=== PATIENT | male | born 2000 | race Caucasian/White ===

== ENCOUNTER 2019-07-31 13:58 | Emergency (ER) | payer SELFPAY ==
[2019-07-31 14:16] VITALS: BP 150/73; PULSE 85; RESP 20; TEMP 36.4; O2SAT 98
--- NOTE | 2019-07-31 14:45 | ED.URI ---
HPI - URI/Sore Throat General Chief Complaint: Upper Respiratory Infection Stated Complaint: Ear/Nose/Throat Time Seen by Provider: 07/31/19 14:46 Source: patient and RN notes reviewed Mode of arrival: ambulatory Limitations: no limitations History of Present Illness HPI Narrative: 19 year old male who presents to [facility] care with complaints of feeling ill since Sunday evening with cold symptoms of cough, headache, sore throat, stomach ache and body aches, chills. with cough and sore throat remaining then last night night right ear pain started. Patient states that he has had some headache and one incidence of nausea and vomiting on Sunday. Patient state that he has had clear nasal drainage and sinus pressure. MD elicited complaint: fever, cough, sore throat, rhinorrhea, nasal congestion, sinus pain and other (ear pain) Onset (ago): day(s) (3-4 days) Consistency: constant Severity: moderate Pain scale (0-10): 6 Description of mucous: yellow Able to tolerate fluids by mouth: Yes Exacerbating factors: swallowing Relieving factors: nothing Associated symptoms: fever, chills, headache, rhinorrhea, nasal congestion, sore throat, cough and other (right ear pain) Related Data Allergies Allergy/AdvReac Type Severity Reaction Status Date / Time Penicillins Allergy Rash Verified 07/31/19 14:32 Review of Systems Review of Systems: Narrative: CONSTITUTIONAL: Has felt feverish, chills, or sweats. EYES: Denies visual changes, redness, or discharge. ENT: Positive rhinorrhea, congestion, sore throat right otalgia. CARDIOVASCULAR: Denies chest pain, palpitations, or edema. RESPIRATORY: Positive cough dyspnea. GASTROINTESTINAL: Denies abdominal pain, nausea, vomiting, or diarrhea. GENITOURINARY: Denies dysuria or hematuria. SKIN: Denies rash or itching. MUSCULOSKELETAL: Denies back pain, joint pain, or myalgia. NEUROLOGIC:positive headache,no numbness, or weakness. PSYCHIATRIC: Denies anxiety or depression. All systems reviewed & are unremarkable except as noted in HPI and below PMFSH Past Medical History Medical History (Updated 07/31/19 @ 17:22 by Malissa Martell NP) ADD (attention deficit disorder) Mononucleosis Rivera-Bautista syndrome Surgical History Surgical History (Updated 07/31/19 @ 17:22 by Malissa Martell NP) History of appendectomy History of tonsillectomy and adenoidectomy Social History Social History (Updated 07/31/19 @ 17:22 by Malissa Martell NP) Living arrangements: with family Gender identity (if verbalized by the patient): Male Comments At time of signature, agree with nursing past medical, social history. There is no relevant family history pertinent to the presenting complaint Exam Narrative: Exam Narrative: GENERAL: Well-appearing, well-nourished, and in no acute distress. HEAD: Normocephalic, atraumatic. EYES: PERRLA and EOMI. ENT: Nares red with clear to light yellow rhinorrhea no epistaxis. Mucous membranes moist. Right TM red dull light reflex left TM normal with adequate light reflex throat red, no exudate or lesions tonsil swelling NECK: Supple. No lymphadenopathy CHEST: Clear to auscultation. No respiratory distress. SaO2 98% on room air HEART: Regular rate and rhythm. No murmur heard. Normal peripheral pulses. ABDOMEN: Soft, nontender, nondistended, normal active bowel sounds. EXTREMITIES: Normal range of motion. No edema. SKIN: Warm, dry, no rash. NEURO: No focal deficits. Alert and oriented x3. Course Vital Signs Vital signs: Vital Signs Temperature 36.4 C 07/31/19 14:16 Pulse Rate 85 07/31/19 14:16 Respiratory Rate 07/31/19 14:16 Blood Pressure 150/73 H 07/31/19 14:16 Pulse Oximetry 98 07/31/19 14:16 Temperature 36.4 C 07/31/19 14:16 Pulse Rate 85 07/31/19 14:16 Respiratory Rate 07/31/19 14:16 Blood Pressure 150/73 H 07/31/19 14:16 Pulse Oximetry 98 07/31/19 14:16 MDM - URI/Sore Throat Differential Diagnosis Differential
== END 2019-07-31 15:15 | disposition home or self-care (01) ==
PROVIDERS: Emergency Provider Registered Nurse
DX: H65.01 Acute serous otitis media, right ear (principal); J06.9 Acute upper respiratory infection, unspecified; J02.9 Acute pharyngitis, unspecified; F90.0 Attention-deficit hyperactivity disorder, predominantly inattentive type; L51.1 Stevens-Johnson syndrome
CPT/HCPCS: 87081; 87880; 99213; G0463

== ENCOUNTER 2020-06-26 14:00 | Emergency (ER) | payer OTHER, SELFPAY ==
[2020-06-26 14:10] VITALS: BP 110/68; PULSE 84; RESP 18; TEMP 36.7; O2SAT 97
--- NOTE | 2020-06-26 14:37 | ED.BACK ---
HPI - Back Pain/Injury General Chief Complaint: Back Pain/Injury Stated Complaint: back pain Source: patient and RN notes reviewed Limitations: no limitations History of Present Illness HPI Narrative: The tall patient, previously mostly healthy, presents with right low back pain. 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 He complains of mild pain that is worse with motion including flexion, better with rest, similar to prior self resolving aches. No direct injury, radiating pain, hematuria, frequency/dysuria, numbness/weakness, gait changes Related Data Allergies Allergy/AdvReac Type Severity Reaction Status Date / Time Penicillins Allergy Rash Verified 06/26/20 14:20 Review of Systems Review of Systems: Narrative: General/Constitutional: No weight loss,fever Eyes: N0: Redness,discharge Ears/Nose/Throat: No: Epistaxis,ear discharge Respiratory: Denies: Hemoptysis Gastrointestinal: No Vomiting, Bleeding-rectal Skin: No Lumps, eruption Neurologic: No Focal Weakness,Sz Hematologic: Denies: Petechiae/Purpura Psychiatric: No: Suicida ideationl All Other Systems: Reviewed and Negative [facility] Past Medical History Medical History (Updated 06/26/20 @ 14:40 by Alvaro Salazar MD) ADD (attention deficit disorder) Mononucleosis Rivera-Bautista syndrome Surgical History Surgical History (Updated 07/31/19 @ 17:22 by Malissa Martell NP) History of appendectomy History of tonsillectomy and adenoidectomy Social History Social History (Updated 07/31/19 @ 17:22 by Malissa Martell NP) Gender identity (if verbalized by the patient): Male Comments At time of signature, agree with nursing past medical, surgical, social and family history. There is no relevant family history pertinent to the presenting complaint Exam Narrative: Exam Narrative: General Appearance: Well appearing, Conjunctiva clear Mouth/Throat: Normal appearing, Normal lips, Supple Respiratory: Airway patent Abdomen: Soft Musculoskeletal: Normal strength (no footdrop, 5/5 : EH L-FHL, gastroc-AT, no saddle weakness) Spine/Back: Paraspinal muscle tender (with mild decreased range of motion; right posterior superior iliac crest) Skin: Normal color Neurological: A&O x3, CN II-XII intact, Normal reflexes (symmetric, 2+ KJ, trace AJ) Psychiatric: Normal mood Course Vital Signs Vital signs: Vital Signs Temperature 98.0 F 06/26/20 14:10 Pulse Rate 84 06/26/20 14:10 Respiratory Rate 18 06/26/20 14:10 Blood Pressure 110/68 06/26/20 14:10 Pulse Oximetry 97 06/26/20 14:10 Temperature 98.0 F 06/26/20 14:10 Pulse Rate 84 06/26/20 14:10 Respiratory Rate 18 06/26/20 14:10 Blood Pressure 110/68 06/26/20 14:10 Pulse Oximetry 97 06/26/20 14:10 Discharge Plan Discharge Clinical Impression: Strain of lumbar region Qualifiers: Encounter type: initial encounter Qualified Code(s): S39.012A - Strain of muscle, fascia and tendon of lower back, initial encounter Patient Disposition: Home, Self-Care Condition: Stable Instructions: Low Back Strain (ED), Lower Back Exercises (ED) Prescriptions: New prednisone 20 mg tablet 60 mg PO DAILY Qty: 9 RF: 0 acetaminophen-codeine 300-30 mg tablet 1 tablet PO HS PRN (Reason: pain) Qty: 10 RF: 0 tramadol 50 mg tablet 50 mg PO Q6H PRN (Reason: pain) Qty: 15 RF: 1 Follow-up/Referrals: PHYSICIAN,[employer] [Primary Care Provider] -
== END 2020-06-26 14:45 | disposition home or self-care (01) ==
PROVIDERS: Emergency Provider Emergency Medicine
DX: S39.012A Strain of muscle, fascia and tendon of lower back, initial encounter (principal); X50.3XXA Overexertion from repetitive movements, initial encounter; Y99.0 Civilian activity done for income or pay; L51.1 Stevens-Johnson syndrome
CPT/HCPCS: 99213; G0463

== ENCOUNTER 2021-11-02 14:24 | Emergency (ER) | payer SELFPAY ==
[2021-11-02 14:30] VITALS: BP 141/89; PULSE 82; RESP 16; TEMP 36.7; O2SAT 99
--- NOTE | 2021-11-02 14:37 | ED.WOUNDLAC ---
HPI - Wound/Laceration General Chief Complaint: Wound/Laceration Stated Complaint: right finger injury Source: patient and RN notes reviewed Mode of arrival: ambulatory Limitations: no limitations History of Present Illness HPI narrative: patient was holding a hammer drill working on a project at work. Hammer drill slipped and went into his right distal index finger on the palmar aspect. Onset (ago): minute(s) (10) Extremity Location: Right: hand ( Index finger) Place: work Patient tetanus UTD: Yes Context: accidental Associated symptoms: pain Treatments prior to arrival: bandage Related Data Home Medications Medication Instructions Recorded Confirmed venlafaxine 150 mg 1 cap PO DAILY 11/02/21 11/02/21 capsule,extended release 24 hr Allergies Allergy/AdvReac Type Severity Reaction Status Date / Time Penicillins Allergy Rash Verified 11/02/21 14:35 Review of Systems Review of Systems: All systems reviewed & are unremarkable except as noted in HPI and below PMFSH Past Medical History Medical History ADD (attention deficit disorder) Mononucleosis Rivera-Bautista syndrome Surgical History Surgical History History of appendectomy History of tonsillectomy and adenoidectomy Social History Social History Gender identity (if verbalized by the patient): Male Exam Const: General: healthy appearing, no acute distress and alert Nutritional Appearance: well nourished Orientation/consciousness: patient oriented x3 Limitations: no limitations HENMT: Head: normal to inspection Ears: external ears normal Face and sinus: normal facial exam Eyes: Conjunctivae: conjunctivae normal Pupils: Equal, round and reactive pupils present EOM: EOMs intact bilaterally Neck: Neck: normal visual inspection Resp: Effort & Inspection: normal respiratory effort Auscultation: clear to auscultation bilaterally Cardio: Rate: regular rate Rhythm: regular rhythm GI: GI Palp: Yes Soft to palpation and No Tenderness to palpation present (GI) Auscultation: normal bowel sounds Back/Spine/Pelvis: Cervical Spine: cervical ROM normal Thoracic/Lumbar Spine: thoraco-lumbar ROM normal Skin: General skin exam: normal color Rashes: no rashes Wounds: wounds noted laceration right volar 2nd finger size (1 cm) Neuro: General: patient oriented x3, moves all extremities, no focal motor deficits and CN's II-XI intact bilaterally Speech: normal speech Gait exam (Neuro): Normal gait present Extrem: General: normal to inspection and no clubbing, cyanosis or edema Psych: Mental Status: mental status grossly normal Affect: normal affect Attitude: cooperative Course Vital Signs Vital signs: Vital Signs Temperature 36.7 C 11/02/21 14:30 Pulse Rate 82 11/02/21 14:30 Respiratory Rate 16 11/02/21 14:30 Blood Pressure 141/89 H 11/02/21 14:30 Pulse Oximetry 99 11/02/21 14:30 Oxygen Delivery Room Air 11/02/21 14:30 Temperature 36.7 C 11/02/21 14:30 Pulse Rate 82 11/02/21 14:30 Respiratory Rate 16 11/02/21 14:30 Blood Pressure 141/89 H 11/02/21 14:30 Pulse Oximetry 99 11/02/21 14:30 Oxygen Delivery Room Air 11/02/21 14:30 Procedures Laceration Laceration 1: Date: 11/02/21 Site: upper extremity Side (If applicable): right (index finger) Description: stellate Depth: simple, single layer Local Anesthetic: lidocaine 1% ( Digital nerve block) Amount of anesthesia used (mL): 5 Pre-repair: wound explored and irrigated ====== Skin Level ====== Skin layer closed with: nylon Size (cm): 4-0 Number of sutures: 4 Technique: running ====== Subcutaneous Layer ====== ====== Muscle Layer ====== ====== Tendon Layer ====== Dressing:
[2021-11-02] MEDS: LIDOCAINE HCL 1% LOCAL INJ 10 ML VIAL 20 ML INFILTRATE (15:16)
[2021-11-02] MEDS: NEOMYCIN/POLYMYXIN/BACITRACIN OINTMENT PACKET 1 PACKET TOPICAL (15:17)
[2021-11-02 15:29] VITALS: BP 138/70; PULSE 78; RESP 16; O2SAT 98
--- NOTE | 2021-11-02 16:03 | PC.NURSE ---
1525 wound repaired with sutures per erp. dressing applied.
== END 2021-11-02 15:29 | disposition home or self-care (01) ==
PROVIDERS: Emergency Provider Emergency Medicine
DX: S61.210A Laceration without foreign body of right index finger without damage to nail, initial encounter (principal); W27.8XXA Contact with other nonpowered hand tool, initial encounter
CPT/HCPCS: 12001; 99282

== ENCOUNTER 2022-04-18 14:41 | Emergency (ER) | payer BC, SELFPAY ==
--- NOTE | 2022-04-18 14:43 | ED.BACK ---
HPI - Back Pain/Injury General Chief Complaint: Back Pain/Injury Stated Complaint: lower back pain Time Seen by Provider: 04/18/22 14:44 Source: patient and RN notes reviewed History of Present Illness HPI Narrative: patient is a 21-year-old male who presents to urgent care with complaints of right-sided low back pain started approximately 1 month ago. Patient states that since then he has been trying to treat his pain with Tylenol and ibuprofen. States the pain worsened today after he attempted to lift a hot tub at work. Patient denies any radiation of the pain. No other acute complaints. No acute distress noted. Patient aware of the plan of care. Some parts of this dictation were generated by voice recognition software and may contain typographical and/or grammatical inaccuracies. Related Data Allergies Allergy/AdvReac Type Severity Reaction Status Date / Time Penicillins Allergy Rash Verified 11/02/21 14:35 Review of Systems Review of Systems: CONSTITUTIONAL: Denies fever, chills, or sweats. EYES: Denies visual changes, redness, or discharge. ENT: Denies rhinorrhea, congestion, sore throat, or otalgia. CARDIOVASCULAR: Denies chest pain, palpitations, or edema. RESPIRATORY: Denies cough or dyspnea. GASTROINTESTINAL: Denies abdominal pain, nausea, vomiting, or diarrhea. GENITOURINARY: Denies dysuria or hematuria. SKIN: Denies rash or itching. MUSCULOSKELETAL: Reports of low back pain to the right NEUROLOGIC: Denies headache, numbness, or weakness. All other systems reviewed are negative, except as documented in HPI. PMFSH Past Medical History Medical History ADD (attention deficit disorder) Mononucleosis Rivera-Bautista syndrome Surgical History Surgical History History of appendectomy History of tonsillectomy and adenoidectomy Social History Social History Gender identity (if verbalized by the patient): Male Comments At the time of my signature, I reviewed and agree with the nursing past medical, surgical, social, and family history. There is no relevant family history pertinent to the patient complaint. Exam Narrative: GENERAL: This is a well-nourished, well-developed patient, in no apparent distress. HEAD: normocephalic, atraumatic. EYES: PERRL. Sclera clear/white. Vision is grossly intact. EARS: External ears normal NOSE: External nose normal with no obvious nasal discharge, nares without redness, no rhinorrhea. THROAT: Mucous membranes moist NECK: Neck supple. SKIN: warm, intact with no suspicious lesions or rash, good texture and turgor. NEURO: awake, alert, and oriented to person, place and time. There were no obvious focal neurologic abnormalities. EXTREMITIES: No clubbing, cyanosis, or edema. BACK: [id number] right lumbar tenderness with positive right SLE Course Course Level of Care: Express Care Visit Vital Signs Vital signs: Vital Signs Temperature 98 F 04/18/22 14:50 Pulse Rate 98 04/18/22 14:50 Respiratory Rate 16 04/18/22 14:50 Blood Pressure 183/82 H 04/18/22 14:50 Pulse Oximetry 100 04/18/22 14:50 Oxygen Delivery Room Air 04/18/22 14:50 Temperature 98 F 04/18/22 14:50 Pulse Rate 98 04/18/22 14:50 Respiratory Rate 16 04/18/22 14:50 Blood Pressure 183/82 H 04/18/22 14:50 Pulse Oximetry 100 04/18/22 14:50 Oxygen Delivery Room Air 04/18/22 14:50 reviewed- Patient is informed that they may have pre-hypertension or hypertension based on a blood pressure reading in the department. I recommend the patient call the primary care provider listed on their discharge instructions or a physician of their choice this week to arrange follow-up for further evaluation of possible pre-hypertension or hypertension. MDM - Back Pain/Injury MDM Narrative Medical decision making narrativ
[2022-04-18 14:50] VITALS: BP 183/82; PULSE 98; RESP 16; TEMP 36.6; O2SAT 100
== END 2022-04-18 15:07 | disposition home or self-care (01) ==
PROVIDERS: Emergency Provider Nurse Practitioner Family; PCP Nurse Practitioner Family
DX: S33.5XXA Sprain of ligaments of lumbar spine, initial encounter (principal); X50.0XXA Overexertion from strenuous movement or load, initial encounter; Y99.0 Civilian activity done for income or pay
CPT/HCPCS: 99213; G0463

== ENCOUNTER 2022-04-25 16:27 | Emergency (ER) | payer BC, SELFPAY ==
[2022-04-25 17:09] VITALS: BP 154/95; PULSE 80; RESP 16; TEMP 37.2; O2SAT 99
--- NOTE | 2022-04-25 18:21 | ED.BACK ---
HPI - Back Pain/Injury General Chief Complaint: Back Pain/Injury Stated Complaint: Back Pain Time Seen by Provider: 04/25/22 18:15 Source: patient and RN notes reviewed Mode of arrival: ambulatory Limitations: no limitations History of Present Illness HPI Narrative: 21-year-old male presents with concern for continued back pain. Reports he was seen 1 week ago and prescribed steroids, ibuprofen and Flexeril for back pain. He does not have any back injury or trauma. Reports he is unable to take the Flexeril at work and a feels like it is not working very well. He reports he has been using ice. Reports he has some days left of his prednisone. He denies loss of bowel or bladder function, perianal anesthesia, weakness in the extremity MD elicited complaint: back pain Related Data Allergies Allergy/AdvReac Type Severity Reaction Status Date / Time Penicillins Allergy Rash Verified 11/02/21 14:35 Review of Systems Review of Systems: CONSTITUTIONAL: Denies malaise, chills, sweats, or fever. CARDIOVASCULAR: Denies chest pain, palpitations, or edema. RESPIRATORY: Denies cough or dyspnea. GASTROINTESTINAL: Denies abdominal pain, nausea, vomiting, diarrhea, loss of bowel function GENITOURINARY: Denies dysuria, hematuria, frequency, loss of bladder function. SKIN: Denies rash or itching. MUSCULOSKELETAL: Reports right low back pain NEUROLOGIC: Denies numbness, weakness, or headache. All systems reviewed & are unremarkable except as noted in HPI and below PMFSH Past Medical History Medical History ADD (attention deficit disorder) Mononucleosis Rivera-Bautista syndrome Surgical History Surgical History History of appendectomy History of tonsillectomy and adenoidectomy Social History Social History Gender identity (if verbalized by the patient): Male Comments At time of signature, agree with nursing past medical, surgical, social and family history. There is no relevant family history pertinent to the presenting complaint Exam Narrative: GENERAL: Well-appearing, well-nourished, and in no acute distress. HEAD: Normocephalic, atraumatic. EYES: PERRLA and EOMI. NECK: Supple. No lymphadenopathy. CHEST: Clear to auscultation. No respiratory distress. HEART: Regular rate and rhythm. Distal pulses palpable and equal, cap refill <3 seconds ABDOMEN: Soft, nontender, nondistended, normal active bowel sounds, no palpable or pulsatile masses. No CVA tenderness MUSCULOSKELETAL: Normal range of motion and strength in all extremities; 5/5 strength with hip flexion and extension, dorsiflexion and extension, knee flexion and extension, plantar flexion and extension. Normal sensation in dermatomal distributions with sensitivity to light touch and pain. No midline back tenderness to palpation. No paraspinal tenderness. Transfers from lying to sitting to standing. SKIN: Warm, dry, no rash. No ecchymosis, erythema, open wounds to back. NEURO: No focal deficits. Alert and oriented x3. Reflexes intact. Normal gait. PSYCH: Normal mood and affect Course Course Emergency Course: Patient is aware of diagnosis, understands and agrees to treatment plan. Anticipatory guidance given. Patient agrees to follow-up as directed and is aware of reasons to seek care at the emergency department. Portions of this record may have been created with voice recognition software Level of Care: Express Care Visit Vital Signs Vital signs: Vital Signs Temperature 99 F 04/25/22 17:09 Pulse Rate 80 04/25/22 17:09 Respiratory Rate 16 04/25/22 17:09 Blood Pressure 154/95 H 04/25/22 17:09 Pulse Oximetry 99 04/25/22 17:09 Oxygen Delivery Room Air 04/25/22 17:09 Temperature 99 F 04/25/22 17:09 Pulse Rate 80 04/25/22 17:09 Respiratory Rate 16 04/25/22 17:09 Blood Pressure 154/95 H 1
== END 2022-04-25 18:32 | disposition home or self-care (01) ==
PROVIDERS: Emergency Provider Nurse Practitioner; PCP Nurse Practitioner Family
DX: M54.50 Low back pain, unspecified (principal)
CPT/HCPCS: 99213; G0463